=== PATIENT | male | born 1975 | race Caucasian/White ===

== ENCOUNTER 2025-03-30 10:55 | Emergency (ER) | payer BC, SELFPAY ==
[2025-03-30 10:58] VITALS: BP 162/108
[2025-03-30 11:17] LABS: Hematocrit 46.6 % (39.0-52.0); Hemoglobin 15.8 g/dL (13.0-18.0); Mean Corp Hgb Conc. 33.9 g/dL (33.0-37.0); Mean Corpuscular Volume 88.8 fL (80.0-94.0); Nucleated Red Blood Cells % 0 % (-); Platelet Count 171 10^3/uL (130-400); Red Cell Dist. Width 12.4 % (11.5-14.5)
[2025-03-30 11:35] LABS: Urine Character Clear (Clear)
[2025-03-30 11:48] LABS: ALT (SGPT) 18 U/L (0-50); AST (SGOT) 23 U/L (17-59); Albumin 5.0 g/dl (3.5-5.0); Alkaline Phosphatase 97 U/L (38-126); Blood Urea Nitrogen 14 mg/dl (9-20); Calcium 9.9 mg/dl (8.4-10.2); Carbon Dioxide 26 mmol/L (22-30); Chloride 105 mmol/L (98-107); Glucose 116 mg/dl (70-99); Potassium 4.4 mmol/L (3.5-5.1); Sodium 141 mmol/L (135-145); Total Protein 7.8 g/dl (6.3-8.2); eGFR > 60.00
[2025-03-30 11:58] LABS: Urine Squamous Cell 0-2 /LPF (Few)
[2025-03-30 11:59] LABS: Urine White Cell 0-2 /HPF (0-5)
--- NOTE | 2025-03-30 13:15 | ED.GENMED ---
History of Present Illness
General
Chief Complaint: Flank Pain
Time Seen by Provider: 03/30/25 12:15
History of Present Illness
History of Present Illness:
49-year-old male with past medical history of recurrent kidney stone presents to the emergency department for evaluation of worsening intractable left flank pain for the past month. Pain is mild in onset but is gradually worsened, focal to the left
costovertebral angle with no radiation or obvious palliating factors. Does note that lying on his left side seems to dramatically worsen pain. No fevers or night sweats. Denies any urinary urgency or hematuria. Does not feel similar to past
kidney stones. No prior intra-abdominal surgery
Review of Systems
Review of Systems
Allergies reviewed?: Yes
All Other Systems: ROS reviewed and negative except as documented in HPI and ROS
Phy Exam
Physical Exam
Physical Exam:
GEN: Well appearing, NAD, WDWN
HEENT: Oral mucosa moist, no scleral icterus
Cardiac: Regular rate
Lung: No respiratory distress, no tachypnea, lungs clear to auscultation
Abdomen: Soft, generally nontender to the anterior abdomen with no palpable masses. No CVA tenderness to percussion
MSK: No gross deformity or injuries
Skin: Good color, no pallor or jaundice, no rashes
Neuro: AO x3, moves all extremities freely
Psych: Calm, cooperative
Course
Orders/Labs/Results
Orders:
Orders
03/30/25 11:05
Urinalysis Reflex To Culture Urgent
Date Specimen was Collected: 03/30/25
Time Specimen was Collected: 11:03
Urine Microscopic Reflex Cult Urgent
03/30/25 11:08
Complete Blood Count/With Diff Urgent
Comprehensive Metabolic Panel Urgent
03/30/25 12:26
CR Chest - 2 Views Urgent
Comment:
Reason For Exam: L mid back pleuritic pain
03/30/25 13:15
CT Abd/Pel (IV only)-DH only Urgent
Comment:
Reason For Exam: L flank pain
03/30/25 14:13
Ketorolac [Toradol] 15 mg IV NOW STA
Abnormal Lab Results
03/30/25 03/30/25
11:05 11:08
Glucose 116 H mg/dl
(70-99)
Ur Occult Blood Reflex 1+ A
(Negative)
Urine RBC 3-6 A /HPF
(0-2)
Urine Albumin (Reflex) 1+ A
(Neg - Trace)
03/30/25 11:08
03/30/25 11:08
Vital Signs
Initial and Last Documented VS:
Initial Vital Signs
Temp Pulse Resp BP Pulse Ox
98.1 F 104 18 162/108 97
03/30/25 10:58 03/30/25 10:58 03/30/25 10:58 03/30/25 10:58 03/30/25 10:58
Last Documented Vital Signs
Temp Pulse Resp BP Pulse Ox
98.1 F 104 18 162/108 97
03/30/25 10:58 03/30/25 10:58 03/30/25 10:58 03/30/25 10:58 03/30/25 13:15
MDM/Problems Addressed
MDM/Problems Addressed:
Patient's pain is clearly reproducible with palpation on exam however not with percussion of the costovertebral angle. Imaging was obtained showing no evidence for acute pathology, findings of questionable appendicitis are not congruent with the
patient's clinical course and findings. He has no right-sided abdominal tenderness. Could consider possibility of pulmonary embolism however he has normal vitals and clearly reproduced pain thus do not see any indication for further workup with
PE. Will trial corticosteroids and muscle relaxants
*Pulse Oximetry
SaO2: 97
Oxygen Mode of Delivery: Room air
Patient hypoxic: no
*Critical Care Note
Total Time (30-74mins, 75-104mins- exclusive of procedures): Not Applicable
ED Attending Note
-
Portions of this chart may have been created with voice recognition software.� Occasional wrong word or��sound alike� substitutions may have occurred due to the inherent limitations of voice recognition software.
Discharge Plan
Departure
Patient Disposition: Home (Routine Discharge)
Date of Disposition: 03/30/25
Time of Disposition: 14:53
Patient with high blood pressure during this ER visit?: No
Discharge Problem:
Back pain, thoracic
Instructions: Upper Back Pain ED
Prescriptions:
New
methylprednisolone [Medrol (Elder)] 4 mg tablets,dose pack
See Rx Instructions .ROUTE .COMPLEX Qty: 21 0RF
Rx Instructions:
orally per package directions
methocarbamol 750 mg tablet
750 - 1,500 mg PO Q8H PRN (Reason: pain) Qty: 20 0RF
Referrals:
Neli Travis MD [Family Provider, Family Practice]
Interventions
Interventions:
*Risk Screen - Suicide Last Done: 03/30/25 10:58
*General Assessment Last Done: 03/30/25 10:58
*Neglect/Abuse Screening Last Done: 03/30/25 10:58
*ED- Fall Risk Assessment Last Done: 03/30/25 10:58
XT-Yihjkb-Dfhvfwanvx Assessment Last Done: 03/30/25 13:59
ED-Male Genitourinary Assessment Last Done: 03/30/25 13:59
Discharge Date and Time
Print Language: NEPALI
[2025-03-30 13:58] VITALS: BMI 30.7
[2025-03-30] MEDS: TORADOL 15 MG IV (14:45)
== END 2025-03-30 15:06 | disposition home or self-care (01) ==
LOC: EMR 10:55
PROVIDERS: EMERGENCY PHYSICIAN Emergency Medicine; FAMILY PHYSICIAN Family Medicine
DX: M54.6 Pain in thoracic spine (principal); Z87.442 Personal history of urinary calculi
CPT/HCPCS: 99284; 96374; 71046; 74177; 80053; 81003; 81015; 85025; Q9967